=== PATIENT | female | born 1985 | race Hispanic/Latino ===

== ENCOUNTER 2018-11-28 20:16 | Emergency (ER) | payer SELFPAY ==
[2018-11-28] MEDS ORDERED: Morphine 4 MG/ML VIAL ONE (20:39)
[2018-11-28] MEDS ORDERED: Ondansetron PF 4 MG/2 ML Vial ONE (20:39)
[2018-11-28 21:09] LABS: #Basophils 0.1 thou/uL (0.0-0.2); #Eosinphils 0.1 thou/uL (0.0-0.7); #Lymphocytes 2.9 thou/uL (1.20-3.40); #Monocytes 0.7 thou/uL (0.11-0.59); #Neutrophils 7.6 thou/uL (1.40-6.50); %Basophils 0.9 % (0.0-1.0); %Eosinophils 0.6 % (0.0-10.0); %Lymphocytes 25.5 % (21.0-51.0); %Monocytes 6.5 % (0.0-10.0); %Neutrophils 66.5 % (42.0-75.0); Hemoglobin 13.2 g/dL (12.0-16.0); Mean Corpuscular HGB CONC 34.7 g/dL (32.0-36.0); Mean Corpuscular Hemoglobin 31.2 pg (27.0-31.0); Mean Platelet Volume 9.7 fL (7.4-10.4); Platelet Count 186 thou/uL (130-400); RBC Distribution Width 12.2 % (11.5-14.5); Red Blood Cell (RBC) Count 4.25 mill/uL (4.20-5.40); White Blood Cell (WBC) Count 11.4 thou/uL (4.8-10.8)
[2018-11-28 21:16] LABS: BHCG - Serum Negative (NEGATIVE); Pregs Control Background? CLEAR/WHITE (CLR/WHITE); Pregs Control Bar Appear? YES (CONTROL BAR)
[2018-11-28 21:34] LABS: ALT (SGPT) 56 U/L (8-55); AST (SGOT) 77 U/L (5-34); Albumin 4.2 g/dL (3.5-5.0); Alkaline Phosphatase 102 U/L (40-150); Anion Gap 12 mmol/L (10-20); BUN (Urea Nitrogen) 16 mg/dL (7.0-18.7); Bilirubin, Total 0.3 mg/dL (0.2-1.2); Calc. Creatinine Clearance 0 mL/min (70-130); Calcium 9.7 mg/dL (7.8-10.44); Carbon Dioxide 25 mmol/L (22-29); Chloride 107 mmol/L (98-107); Estimated GFR-MDRD Greater than 90; Globulin 2.7 g/dL (2.4-3.5); Glucose 119 mg/dL (70-105); Lipase 14 U/L (8-78); Potassium 3.4 mmol/L (3.5-5.1); Protein, Total 6.9 g/dL (6.0-8.3); Sodium 141 mmol/L (136-145)
--- NOTE | 2018-11-28 21:50 | CT ---
CT abdomen pelvis: 11/28/2018 COMPARISON: 06/27/2016 HISTORY: Periumbilical abdominal pain Technique: Axial CT imaging at 5 mm intervals through abdomen/pelvis with IV contrast and coronal ref ormatted imaging. FINDINGS: There is a pulmonary nodule within the right middle lobe measuring 9 mm, nonspecific. The i antoni lung bases are otherwise unremarkable. There is no free intraperitoneal air. There is small volume free fluid in the pelvic cul-de-sac. There is mild periportal edema. Liver is unremarkable oth erwise. The spleen, pancreas, adrenal glands, and kidneys appear unremarkable. Cholelithiasis is noted, incompletely assessed on this examination. Prominent vascular structures are seen and bilateral adnexal regions, unchanged when compared to a CT performed 12/17/2007. No evidence for focal bowel inflammatory change or obstruction. The appendix is visualized and is nor mal. Vascular structures of abdomen/pelvis appear patent. No abdominal or pelvic lymphadenopathy. Osseous structures demonstrate no acute findings. IMPRESSION: Cholelithiasis. No evidence for free intraperitoneal air, bowel obstruction, or appendici tis. Nonspecific pulmonary nodule in the right middle lobe for which follow-up nonemergent CT of chest suggested. Code lung nodule
[2018-11-28 22:14] LABS: Bilirubin Negative (Negative); Blood, Urine Negative (Negative); Clarity Clear (Clear); Glucose, Urine (Dipstick) Negative (Negative); Leukocyte Negative (Negative); Nitrite Negative (Negative); Protein, Urine (Dipstick) Negative (Neg-Trace); Specific Gravity, Urine 1.015 (1.005-1.030); Urobilinogen 0.2 mg/dL (0.2-1.0)
== END 2018-11-28 22:26 | disposition home or self-care (01) ==
LOC: SCSER 20:16
DX: K80.20 Calculus of gallbladder without cholecystitis without obstruction (principal); R91.1 Solitary pulmonary nodule; F41.9 Anxiety disorder, unspecified; F17.210 Nicotine dependence, cigarettes, uncomplicated
CPT/HCPCS: 74177; 80053; 81003; 83690; 84703; 85025; 96361; 96374; 96375; J2270; J2405

== ENCOUNTER 2018-11-30 15:22 | Observation (INO) | payer SELFPAY ==
--- NOTE | 2018-11-30 16:59 | ULT ---
Exam: Right upper quadrant ultrasound: HISTORY: Abdominal pain. COMPARISON: CT abdomen on 11/28/2018 FINDINGS: Liver: At the upper limits of normal in size. No focal hepatic lesion is seen. Gallbladder: Multiple shadowing echogenic foci are seen in the gallbladder lumen compatible with chol elithiasis. The gallbladder wall is mildly thickened measuring 0.3 to 0.4 cm in thickness. No pericholecystic fluid is seen. Reservations Manager does note a negative sonographic Vogt's sign. Common bile duct: The common duct measures 0.7 cm in diameter which is dilated. No intrahepatic bilia ry duct dilatation is seen. Pancreas: Limited visualized portions of the pancreas demonstrate a normal sonographic appearance. Right kidney: Normal sonographic appearance and [id number] cm in length. IVC: The visualized IVC demonstrates a normal sonographic appearance. Aorta: Visualized proximal abdominal aorta is normal in caliber. IMPRESSION: 1. Cholelithiasis with mild gallbladder wall thickening. There is no pericholecystic fluid, and the u ltrasonographer notes a negative sonographic Vogt's sign. 2. Mild dilatation of the extrahepatic common duct measuring 0.7 cm in diameter.
[2018-11-30] MEDS ORDERED: Morphine 4 MG/ML VIAL ONE (18:35)
[2018-11-30] MEDS ORDERED: Sodium Chloride 0.9% 1,000 ML IV SCH (19:46)
[2018-11-30] MEDS ORDERED: Ondansetron PF 4 MG/2 ML Vial IVP PRN ×2 (19:46→20:41)
[2018-11-30] MEDS ORDERED: Morphine 2 MG/ML SYRINGE SLOW IVP PRN ×2 (19:46→20:41)
[2018-11-30] MEDS ORDERED: Ondansetron ODT 4 MG TAB SL PRN (19:46)
[2018-11-30 19:51] VITALS: BMI 30.7
[2018-11-30] MEDS ORDERED: Acetaminophen 1,000 MG in Premix Bag 1 BAG IVPB PRN (20:41)
[2018-11-30] MEDS ORDERED: Calcium Carbonate 500 MG ChewTAB PO PRN (20:41)
[2018-11-30] MEDS ORDERED: Promethazine HCl 25 MG/ML VIAL IM PRN (20:41)
[2018-11-30] MEDS ORDERED: Dextrose 50% Abboject 50 ML SYRINGE SLOW IVP PRN (20:41)
[2018-11-30] MEDS ORDERED: Ketorolac Tromethamine 30 MG/ML VIAL IVP PRN (20:41)
[2018-11-30] MEDS ORDERED: hydrALAZINE 20 MG/ML VIAL SLOW IVP PRN (20:41)
[2018-11-30] MEDS ORDERED: Dextrose 5% in Water 1,000 ML IV PRN (20:41)
[2018-11-30] MEDS ORDERED: Mag-Al 1200 mg/1200 mg/30 ML UDCUP PO PRN (20:41)
[2018-11-30] MEDS ORDERED: Morphine 4 MG/ML VIAL SLOW IVP PRN (20:41)
--- NOTE | 2018-11-30 21:03 | HP ---
CHIEF COMPLAINT: Upper abdominal pain. HISTORY OF PRESENT ILLNESS: This is a 33-year-old female with a previous episodic right upper quadrant pain that always resolved and was mild, now presents with severe sharp 8/10 epigastric pain, did radiate to her right side associated with nausea, no vomiting, and associated with bloating. Seen in the emergency department, where ultrasound shows gallstones. She was found to have elevated liver function tests. She is admitted to my service for cholecystitis. PAST MEDICAL HISTORY: Denies. PAST SURGICAL HISTORY: Denies. MEDICATIONS: Medicines taken daily, none. ALLERGIES: NO KNOWN DRUG ALLERGIES. SOCIAL HISTORY: No smoking, alcohol or other drugs. REVIEW OF SYSTEMS: Ten-system review of systems is otherwise negative unless described above. PHYSICAL EXAMINATION: VITAL SIGNS: Blood pressure is 111/16, pulse 68, respirations 18, and temperature 98.4. HEENT: Sclerae anicteric. Oropharynx clear. NECK: No lymphadenopathy. CHEST: Clear. HEART: Regular rate and rhythm. ABDOMEN: Soft. Tender in the right upper quadrant and epigastric without guarding or rebound. No abdominal hernias. EXTREMITIES: No ischemia or edema to extremities. LABORATORY DATA: White blood cell count 7.8, hemoglobin 12.9, platelet count is 190. Sodium 140, potassium 4.2, creatinine 0.75, bilirubin 3.1, AST and ALT are 313 and 478, alkaline phosphatase 166. Lipase normal. Urine positive bilirubin. An ultrasound shows gallstones, mildly dilated common bile duct. ASSESSMENT: Acute cholecystitis, elevated liver function tests, and common bile duct 0.7 cm. PLAN: Repeat liver function tests in the morning. If elevated or not improved, likely needs ERCP first. If improving, laparoscopic cholecystectomy with intraoperative cholangiogram. Risks, benefits, alternatives to surgery discussed and she gives consent. Job ID: [id number]
[2018-11-30] MEDS: Famotidine 20 MG TAB PO SCH (21:13)
[2018-11-30] MEDS: D5 1/2 NS w/20 mEq KCL 1,000 ML IV SCH (21:13)
[2018-11-30] MEDS: Famotidine/PF 20 mg/2ml Vial SLOW IVP SCH (21:28)
[2018-12-01] MEDS: D5 1/2 NS w/20 mEq KCL 1,000 ML IV SCH (05:12)
[2018-12-01 06:48] LABS: #Basophils 0.1 thou/uL (0.0-0.2); #Eosinphils 0.1 thou/uL (0.0-0.7); #Lymphocytes 2.5 thou/uL (1.20-3.40); #Monocytes 0.7 thou/uL (0.11-0.59); #Neutrophils 5.3 thou/uL (1.40-6.50); %Basophils 0.6 % (0.0-1.0); %Eosinophils 1.6 % (0.0-10.0); %Lymphocytes 29.1 % (21.0-51.0); %Monocytes 7.8 % (0.0-10.0); %Neutrophils 60.8 % (42.0-75.0); Hemoglobin 11.3 g/dL (12.0-16.0); Mean Corpuscular HGB CONC 32.4 g/dL (32.0-36.0); Mean Corpuscular Hemoglobin 30.9 pg (27.0-31.0); Mean Corpuscular Volume 95.2 fL (78.0-98.0); Mean Platelet Volume 9.5 fL (7.4-10.4); Platelet Count 166 thou/uL (130-400); RBC Distribution Width 12.2 % (11.5-14.5); Red Blood Cell (RBC) Count 3.67 mill/uL (4.20-5.40); White Blood Cell (WBC) Count 8.7 thou/uL (4.8-10.8)
[2018-12-01 07:09] LABS: ALT (SGPT) 274 U/L (8-55); AST (SGOT) 99 U/L (5-34); Albumin 3.3 g/dL (3.5-5.0); Alkaline Phosphatase 135 U/L (40-150); Anion Gap 8 mmol/L (10-20); BUN (Urea Nitrogen) 8 mg/dL (7.0-18.7); Bilirubin, Total 3.1 mg/dL (0.2-1.2); Calc. Creatinine Clearance 152 mL/min (70-130); Calcium 7.9 mg/dL (7.8-10.44); Carbon Dioxide 20 mmol/L (22-29); Chloride 110 mmol/L (98-107); Estimated GFR-MDRD Greater than 90; Globulin 2.1 g/dL (2.4-3.5); Glucose 110 mg/dL (70-105); Lipase 14 U/L (8-78); Potassium 3.8 mmol/L (3.5-5.1); Protein, Total 5.4 g/dL (6.0-8.3); Sodium 134 mmol/L (136-145)
[2018-12-01] MEDS ORDERED: Promethazine HCl 25 MG/ML VIAL SLOW IVP PRN (09:42)
[2018-12-01] MEDS ORDERED: Ondansetron HCl/PF 4 MG/2 ML Vial IVP PRN (09:42)
[2018-12-01] MEDS ORDERED: Promethazine HCl 25 MG/ML VIAL IM PRN ×2 (09:42→14:35)
[2018-12-01] MEDS ORDERED: cefOXitin 2 GM VIAL ONE (10:21)
[2018-12-01] MEDS ORDERED: Bupivacaine/Epinephrine 0.25% 30 ML VIAL ONE (10:23)
[2018-12-01] MEDS ORDERED: Iothalamate Meglumine 60% 50 ML VIAL FS ONE (10:23)
[2018-12-01] MEDS ORDERED: Midazolam HCl 2 mg/2 ml Vial ONE (10:37)
[2018-12-01] MEDS ORDERED: Fentanyl 250 MCG/5 ML VIAL ONE (10:37)
[2018-12-01] MEDS ORDERED: Rocuronium Bromide 10 MG/ML (10ML VIAL) ONE ×2 (12:01→12:02)
[2018-12-01] MEDS ORDERED: Lidocaine 1% PF 5 ML VIAL ONE (12:01)
[2018-12-01] MEDS ORDERED: Dexamethasone 20 MG/5 ML VIAL ONE (12:01)
[2018-12-01] MEDS ORDERED: Succinylcholine Chloride 20 MG/ML 10 ml SYRINGE FS ONE (12:01)
[2018-12-01] MEDS ORDERED: Ondansetron PF 4 MG/2 ML Vial ONE (12:01)
[2018-12-01] MEDS ORDERED: PROPOFOL 200 MG/20 ML VIAL ONE (12:01)
[2018-12-01] MEDS ORDERED: Glycopyrrolate 0.2 MG/ML 5 ML SYRINGE ONE (12:02)
[2018-12-01] MEDS ORDERED: SUGAMMADEX SODIUM 200 MG/2 ML VIAL ONE (12:34)
[2018-12-01] MEDS ORDERED: Sodium Chloride 0.9% 100 ML ONE (12:35)
--- NOTE | 2018-12-01 12:42 | RAD ---
ERCP: INDICATIONS: 4 fluoroscopic images presented during ERCP procedure. Follow-up cholecystectomy. Findings/impression: Common duct is opacified. I cannot exclude persistent filling defect in the lowe r common duct at the ampulla. This area is not well opacified.
[2018-12-01] MEDS ORDERED: Fentanyl 100 MCG/2 ML VIAL ONE (13:05)
[2018-12-01] MEDS: Famotidine/PF 20 mg/2ml Vial SLOW IVP SCH (14:21)
[2018-12-01] MEDS: Famotidine 20 MG TAB PO SCH ×2 (14:21→21:43)
[2018-12-01] MEDS ORDERED: Morphine 2 MG/ML SYRINGE SLOW IVP PRN (14:35)
[2018-12-01] MEDS ORDERED: Dextrose 5% in Water 1,000 ML IV PRN (14:35)
[2018-12-01] MEDS ORDERED: Ondansetron PF 4 MG/2 ML Vial IVP PRN (14:35)
[2018-12-01] MEDS ORDERED: hydrALAZINE 20 MG/ML VIAL SLOW IVP PRN (14:35)
[2018-12-01] MEDS ORDERED: Dextrose 50% Abboject 50 ML SYRINGE SLOW IVP PRN (14:35)
[2018-12-01] MEDS ORDERED: Calcium Carbonate 500 MG ChewTAB PO PRN (14:35)
[2018-12-01] MEDS ORDERED: Mag-Al 1200 mg/1200 mg/30 ML UDCUP PO PRN (14:35)
[2018-12-01] MEDS: Morphine 4 MG/ML VIAL SLOW IVP PRN ×2 (14:48→16:43)
--- NOTE | 2018-12-01 17:58 | CON ---
DATE OF CONSULTATION: REASON FOR CONSULT: Possible choledocholithiasis. HISTORY OF PRESENT ILLNESS: Ms. Viramontes is a pleasant 33-year-old female, who came to the emergency room last night with right upper quadrant pain. She notes that intermittently for the past 2 weeks, she has had right upper quadrant pain, occasionally radiating to her back. After eating, it has always resolved in the past, but now it was pretty severe and persistent 8/10 and did radiate around the right side. She had no nausea or vomiting. She had no fever or chills. She does note her urine has been dark for a couple of days. She had an ultrasound in the emergency room that showed gallstones and a 7 mm bile duct. Also, her liver function tests were done. She was admitted for "acute cholecystitis" by Dr. Beasley. He contacted me this morning, asked me to see her as her LFTs remained elevated. He plans on doing a laparoscopic cholecystectomy with IOC. If IOC is positive, we can perform an ERCP at the same anesthetic. Presently, the patient is without pain or fever. PAST MEDICAL HISTORY: Negative. PAST SURGICAL HISTORY: Negative. MEDICATIONS: At home, none. ALLERGIES: NONE. REVIEW OF SYSTEMS: Negative for shortness of breath, dyspnea on exertion, chest pain, orthopnea, dysphagia, odynophagia, melena, hematochezia, or hematemesis. Her weight has been stable. PRESENT MEDICATIONS: 1. Tylenol p.r.n. 2. Pepcid. 3. P.R.N. fentanyl. 4. P.R.N. Toradol. 5. P.R.N. morphine. 6. P.R.N. Zofran. 7. D5 half-normal saline 20,000, 120 an hour. PHYSICAL EXAMINATION: GENERAL: She is resting comfortably in the preoperative area. She is in no distress. She is resting comfortably in bed. She is alert and oriented to person, place, and time. VITAL SIGNS: Temperature is 98. She has been afebrile all night. Blood pressure is anywhere from 88/60 to 111/66, pulse is 64, O2 saturation 96% on room air, and respirations 16. HEENT: She is mildly icteric. LUNGS: Clear. HEART: Regular rate and rhythm without clicks, rubs, or murmurs. ABDOMEN: Soft and nontender at this time. There is no rebound. There is no guarding. There is no palpable hepatosplenomegaly. EXTREMITIES: There are no clubbing, cyanosis, or edema. SKIN: Without rashes or lesions or spider angiomata. LABORATORY STUDIES: White count was 11,000 on the , 7.8 yesterday, and 8.6 today. Hemoglobin 11.3, it was 13.2 on the . Platelets 166. On 11/28, her AST and ALT were 77 and 56, otherwise normal liver function test. Yesterday on the , her bilirubin was 3.1 with AST and ALT of 313 and 478 with alkaline phosphatase 166. Today, her bilirubin is still 3.1. Her AST and ALT have gone down some to 99 and 274 with alkaline phosphatase of 135 and lipase was 14. test is negative. Urinalysis showed moderate bilirubin and squamous cells, no white blood cells. Her ultrasound showed gallstones with mild gallbladder wall thickening. No pericholecystic fluid. Mild dilatation of the extrahepatic common bile duct is 7 mm. ASSESSMENT: Symptomatic cholelithiasis, possible cholecystitis. No signs of cholangitis. Her LFTs were elevated. She has a dilated duct and she may have choledocholithiasis. PLAN: She is going to have a laparoscopic cholecystectomy today with IOC. If that is positive, she will need an ERCP. I drawn her picture of the anatomy and discussed the risks, benefits, and possible complications of that with her including the risk of perforation, bleeding, reaction to medication, aspiration, and pancreatitis. She understands these risks and reason to proceed with the ERCP as opposed to open common bile duct exploration and wished to proceed with that, that is what is necessary. We will be available to perform ERCP at same anesthetic of [facility] if necessary. Job ID: [id number]
--- NOTE | 2018-12-01 18:08 | OP ---
DATE OF PROCEDURE: 12/01/2018 PROCEDURES PERFORMED: Endoscopic retrograde cholangiopancreatography, sphincterotomy, and balloon extraction of stones. PREPROCEDURE DIAGNOSES: 1. Cholecystitis with abnormal liver enzymes and 7 mm common duct on ultrasound. 2. Status post laparoscopic cholecystectomy with positive intraoperative cholangiography. POSTPROCEDURE DIAGNOSES: 1. Normal-appearing ampulla. 2. Cholangiogram revealed filling defects in the distal duct. 3. After sphincterotomy, 9 mm balloon was used to remove several stones and debris from the duct. Occlusion cholangiogram was clear afterwards with a spontaneous drainage of contrast both endoscopically and radiographically at the conclusion of procedure. COMPLICATIONS: None. BLEEDING: None. ANESTHESIA: General endotracheal anesthesia. PROCEDURE IN DETAIL: After the patient was informed of the risks, benefits, and possible complications of endoscopy including perforation, bleeding, reaction to medication, aspiration, as well as risks of ERCP including risk of post ERCP pancreatitis and bowel perforation, informed consent was obtained. After the patient went to the operating room, had a laparoscopic cholecystectomy. I was called by General Surgery, noting that there was positive IOC and she needed ERCP. We had previously discussed this prior to the patient's surgery and she had consents, was ready to go. She was moved directly from the OR to the fluoroscopy suite, where she was placed on the fluoro table in the prone position. A bite was placed inside the orifice. Human Relations Professor films were obtained showing some drainage of contrast into the duodenum from the bile duct. We confirmed with Dr. Beasley that he did see a stone and he stated yes. We went ahead and did advance side-viewing scope through the bite block into the esophagus, stomach, and the second and third portion of the duodenum and the ampulla was brought into view. Free cannulation was obtained and a cholangiogram did show small filling defect in the distal duct. The sphincterotomy was performed over a guidewire and a 9 mm balloon was used to sweep the duct. There was quite a bit of debris and small stones initially and then one large stone came out. Photo documentation was obtained. Occlusion cholangiogram was then performed with no further filling defects, the duct was swept 3 or 4 more times, no other stones seen. At the conclusion of the procedure, there was good hemostasis and there was spontaneous drainage of contrast both endoscopically and radiographically documented. The scope was removed after the stomach was desufflated. The patient was brought back onto the table, extubated, brought to recovery room in stable condition. Job ID: [id number]
--- NOTE | 2018-12-01 20:45 | OP ---
DATE OF PROCEDURE: 12/01/2018 PREOPERATIVE DIAGNOSIS: Acute cholecystitis with elevated liver function tests. POSTOPERATIVE DIAGNOSIS: Acute cholecystitis with elevated liver function tests. PROCEDURE PERFORMED: Laparoscopic cholecystectomy with intraoperative cholangiogram. ANESTHESIA: General. SPECIMEN: None. COMPLICATIONS: None. SPECIMEN: Gallbladder. FINDINGS: Positive cholangiogram showing distal common bile duct obstruction, small amount of contrast flow into the duodenum, markedly dilated common cystic duct and common bile duct. TECHNIQUE: The patient was taken to the operating room and laid supine on the operating room table. After general anesthetic was obtained, the abdomen was prepped and draped in a sterile fashion. A curved incision was made below the umbilicus. Cautery was dissected down to and score the fascia. Abdominal cavity was entered bluntly using a Sapphire clamp. Holding stitch of PDS was placed on each side the fascia. Remy trocar was placed. High-flow pneumoperitoneum was obtained. quadrant 5-mm ports were placed under direct visualization. The gallbladder was retracted from the gallbladder fossa. The peritoneum was opened anteriorly and posteriorly. The critical view triangle was seen showing only the cystic duct and cystic artery branching medial to lateral. There were no other branching structure. A small ductotomy was made and a cholangiocatheter was brought in through a separate stab incision, placed into the cystic duct and a cholangiogram was performed, which shows distal common bile duct obstruction. There was a sliver of contrast to get into the duodenum. There was good filling of the right and left hepatic duct system proximally. Cholangiocatheter was removed and a PDS endo-loop was used to ligate the cystic duct. Cautery was used to dissect the gallbladder out of the gallbladder fossa. Gallbladder was placed in EndoCatch bag and brought out through the Remy. The cystic artery had been clipped with 2 clips proximally, 1 clip distally and cut using laparoscopic scissors. Meticulous hemostasis seen in the liver bed. Right upper quadrant irrigated until returns were clear. All port sites were infiltrated using local anesthetic. All ports were removed under camera visualization. Pneumoperitoneum was let down. PDS was used to close the fascial defect below the umbilicus. All incisions were irrigated and closed using 4-0 Monocryl and Dermabond. The patient was sent to Recovery in stable condition. All instrument counts, needle counts, and lap counts were correct. Job ID: [id number]
[2018-12-01] MEDS: HYDROcodone/Acetaminophen 10/325 mg Tablet PO PRN (21:43)
[2018-12-02] MEDS: Famotidine/PF 20 mg/2ml Vial SLOW IVP SCH ×2 (00:43→08:08)
[2018-12-02] MEDS: D5 1/2 NS w/20 mEq KCL 1,000 ML IV SCH ×4 (05:08→08:08)
[2018-12-02] MEDS: HYDROcodone/Acetaminophen 10/325 mg Tablet PO PRN (06:44)
[2018-12-02 06:52] LABS: #Monocytes 0.8 thou/uL (0.11-0.59); #Neutrophils 9.6 thou/uL (1.40-6.50); %Basophils 0.3 % (0.0-1.0); %Eosinophils 0.4 % (0.0-10.0); %Lymphocytes 15.8 % (21.0-51.0); %Monocytes 6.1 % (0.0-10.0); %Neutrophils 77.4 % (42.0-75.0); Hemoglobin 11.9 g/dL (12.0-16.0); Mean Corpuscular HGB CONC 32.7 g/dL (32.0-36.0); Mean Corpuscular Hemoglobin 30.9 pg (27.0-31.0); Mean Corpuscular Volume 94.3 fL (78.0-98.0); Mean Platelet Volume 9.9 fL (7.4-10.4); Platelet Count 176 thou/uL (130-400); RBC Distribution Width 12.1 % (11.5-14.5); Red Blood Cell (RBC) Count 3.86 mill/uL (4.20-5.40); White Blood Cell (WBC) Count 12.4 thou/uL (4.8-10.8)
[2018-12-02 07:16] LABS: ALT (SGPT) 267 U/L (8-55); AST (SGOT) 88 U/L (5-34); Albumin 3.5 g/dL (3.5-5.0); Alkaline Phosphatase 152 U/L (40-150); Bilirubin, Direct 0.6 mg/dL (0.1-0.3); Bilirubin, Total 1.2 mg/dL (0.2-1.2); Lipase 11 U/L (8-78); Protein, Total 5.9 g/dL (6.0-8.3)
--- NOTE | 2018-12-02 07:17 | RAD ---
INTRAOPERATIVE CHOLANGIOGRAM: DATE: 12/01/2018. HISTORY: Cholecystectomy. Cholelithiasis. FINDINGS: Thirteen intraoperative fluoroscopic images of the right upper quadrant are submitted for interpretat ion. Surgical instruments overlie the abdomen. Cystic duct is cannulated. There is opacification o f the common duct with opacification of intrahepatic bile ducts. The common duct does appear mildly dilated. Images demonstrating free spill of contrast into the duodenum are not provided. Filling de fect or narrowing in the distal common duct near the ampulla could not be excluded based on this exam . Correlation with intraoperative findings is recommended. FLUOROSCOPY: Total fluoroscopy time is 14 seconds with total dose of 14.09 mGy. POS: [facility]
[2018-12-02] MEDS: Famotidine 20 MG TAB PO SCH (08:48)
--- NOTE | 2018-12-02 11:18 | DIS ---
DATE OF ADMISSION: 11/30/2018 DATE OF DISCHARGE: 12/02/2018 ADMIT DIAGNOSES: Acute cholecystitis and elevated liver function tests. DISCHARGE DIAGNOSES: Acute cholecystitis and elevated liver function tests. PROCEDURES: Laparoscopic cholecystectomy by Dr. Beasley without complication. Endoscopic retrograde cholangiopancreatography by Dr. Marin without complication. CONDITION ON DISCHARGE: Improved. HOSPITAL COURSE: On postop day 1, the patient is doing well. Her liver function tests are normalizing. Her pain is well controlled. She is discharged home. Prescriptions for [place] and Zofran are on the chart. Follow up with me in 2 weeks. Job ID: [id number]
[2018-12-02 11:19] VITALS: BP 106/68; TEMP 99.5
--- NOTE | 2018-12-02 13:50 | PRG ---
DATE OF SERVICE: 12/02/2018 SUBJECTIVE: Ms. Viramontes underwent ERCP yesterday after laparoscopic cholecystectomy and removal of common bile duct stone. She is doing well. OBJECTIVE: VITAL SIGNS: Temperature is 99, pulse 65, blood pressure 106/68. LUNGS: Clear. HEART: Regular rate and rhythm without clicks, rubs, or murmurs. ABDOMEN: Mildly tender appropriately. Trocar sites with no evidence of bleeding or hemorrhage. LABORATORY DATA: Bilirubin went from 3.1 to 1.2. AST and ALT are 88 and 267; they were 99 and 274 yesterday. Alkaline phosphatase 152, 135 yesterday. Lipase is 11. ASSESSMENT: Status post laparoscopic cholecystectomy for cholelithiasis. Status post endoscopic retrograde cholangiopancreatography for choledocholithiasis with no complications. Doing well. Agree with plan for discharge. . Job ID: [id number]
== END 2018-12-02 12:36 | disposition home or self-care (01) ==
LOC: ERS 15:22 → 3SE 19:23
PROVIDERS: ADMIT Surgery; ATTEND Surgery
PROC: 0FT44ZZ Resection of Gallbladder, Percutaneous Endoscopic Approach (ICD-10-PCS; principal; 2018-12-01)
PROC: BF131ZZ Fluoroscopy of Gallbladder and Bile Ducts using Low Osmolar Contrast (ICD-10-PCS; 2018-12-01)
PROC: 0F798ZZ Dilation of Common Bile Duct, Via Natural or Artificial Opening Endoscopic (ICD-10-PCS; 2018-12-01)
PROC: 0FC98ZZ Extirpation of Matter from Common Bile Duct, Via Natural or Artificial Opening Endoscopic (ICD-10-PCS; 2018-12-01)
DX: K80.66 Calculus of gallbladder and bile duct with acute and chronic cholecystitis without obstruction (principal); R79.89 Other specified abnormal findings of blood chemistry
CPT/HCPCS: 36415; 47532; 74330; 76705; 80053; 80076; 83690; 85025; 88304; 96361; 96374; 96375; 96376; G0378; J0694; J1100; J1610; J1885; J2001; J2250; J2270; J2405; J2704; J3010; J3490; Q9961